=== PATIENT | male | born 1980 | race African-American/Black ===

== ENCOUNTER 2017-11-02 18:21 | Emergency (ER) | payer SELFPAY ==
[~2017-11-02] VITALS: Ht 182.9 cm; Wt 104.3 kg
[2017-11-02 18:38] VITALS: BP 161/94
--- NOTE | 2017-11-02 18:40 | NUR ---
Patient ambulated to bed 2. RN evaluating patient at bedside.
--- NOTE | 2017-11-02 18:48 | NUR ---
REPORT GIVEN TO ZORAIDA RUBIO
--- NOTE | 2017-11-02 18:50 | NUR ---
PATIENT COMPLAINS OF LEFT ANKLE PAIN X 1 MONTH. PATIENT REPORTS SPRAINED ANKLE 1 MONTH AGO, DID NOT FOLLOW UP WITH ANY DOCTORS AND STATES ANKLE HAS NEVER BEEN THE SAME. CAP REFILL LESS THAN 3 SEC. DENIES N/V/D; SKIN IS PINK/WARM/DRY; AAOX4 WITH EVEN AND STEADY GAIT; PATIENT STATES PAIN OF 1/10 AT THIS TIME; VSS; PATIENT POSITIONED FOR COMFORT; HOB ELEVATED; BEDRAILS UP X1; BED DOWN. ER MD MADE AWARE OF PT STATUS.
--- NOTE | 2017-11-02 19:11 | NUR ---
RECIEVED REPORT FROM RAMIRO CONWAY
[2017-11-02 20:12] VITALS: BP 161/94
--- NOTE | 2017-11-02 20:12 | NUR ---
Patient discharged with v/s stable with decreased pain. Written and verbal after care instructions given and explained. Patient verbalized understanding. Ambulatory with steady gait. All questions addressed prior to discharge. Advised to follow up with PMD.
== END 2017-11-02 20:12 | disposition home or self-care (01) ==
LOC: MED 18:21
DX: S93.402A Sprain of unspecified ligament of left ankle, initial encounter (principal); X58.XXXA Exposure to other specified factors, initial encounter; Y93.89 Activity, other specified; Y92.89 Other specified places as the place of occurrence of the external cause; Y99.8 Other external cause status
CPT/HCPCS: 73610; 99284; Q0092

== ENCOUNTER 2019-06-11 02:23 | Emergency (ER) | payer MEDICAID ==
[~2019-06-11] VITALS: Ht 180.3 cm; Wt 108.0 kg
[2019-06-11 02:28] VITALS: BP 162/101
--- NOTE | 2019-06-11 02:40 | NUR ---
PT TAKEN TO BED 4
--- NOTE | 2019-06-11 02:50 | NUR ---
PT ASSESSMENT COMPLETE. PT PLACED IN GOWN. BEDRAIL X1 UP. WILL CONTINUE TO MONITOR.
--- NOTE | 2019-06-11 03:06 | NUR ---
Dr. Eaton examining patient.
--- NOTE | 2019-06-11 03:20 | NUR ---
PT UNABLE TO PROVIDE URINE SPECIMEN AT THIS TIME. DR. RUFF GAVE PERMISSION TO GIVE PT PO FLUIDS
--- NOTE | 2019-06-11 03:45 | NUR ---
Ultrasound at bedside.
[2019-06-11 04:08] LABS: APPEARANCE,URINE CLEAR (CLEAR); BILIRUBIN,URINE NEGATIVE (NEGATIVE); BLOOD, URINE TRACE-I (NEGATIVE); COLOR,URINE YELLOW (YELLOW); LEUKOCYTE ESTERASE ,URINE TRACE (NEGATIVE); NITRITE, URINE NEGATIVE (NEGATIVE); UGLUCOSE NEGATIVE (NEGATIVE)
[2019-06-11 04:28] LABS: RBC,URINE 0-5 /HPF (0-5)
--- NOTE | 2019-06-11 04:45 | NUR ---
PT BP AT 184/87, PT ASYMPTOMATIC. PT STATES "SOMETIMES IT GETS LIKE THAT AFTER I GO OUT. I HAD SOME ALCOHOL AND COCAINE LAST NIGHT." ERMD MADE AWARE.
[2019-06-11] MEDS ORDERED: AZITHROMYCIN 250 MG TAB PO ONE (05:05)
[2019-06-11] MEDS ORDERED: cefTRIAXone 250 MG in LIDOCAINE MPF 1% 0.9 ML IM ONE (05:05)
[2019-06-11] MEDS ORDERED: LIDOCAINE MPF 1% 5 ML ONE (05:09)
[2019-06-11] MEDS ORDERED: cefTRIAXone 250 MG VIAL ONE (05:09)
--- NOTE | 2019-06-11 05:22 | NUR ---
EXPLAINED SIDE EFFECTS OF AZITHROMYCIN AND ROCEPHIN; PT MADE AWARE THAT CESSATION OF ALCOHOL IS NEEDED WHILE ON ANTIBIOTICS. PT REPORTS "THAT'S HARD TO STOP. IT'S MY ENVIRONMENT. I'M AROUND ALOT OF PEOPLE AND WE ALL DRINK TOGETHER." FURTHER EDUCATION PROVIDED OF INTERACTION BETWEEN ALCOHOL AND MEDICATION.
[2019-06-11 05:59] VITALS: BP 155/82
[2019-06-13 06:07] LABS: CHLAMYDIA TRACHOMATIS AMP DNA Negative (Negative)
== END 2019-06-11 05:56 | disposition home or self-care (01) ==
LOC: MED 02:23
DX: N45.1 Epididymitis (principal)
CPT/HCPCS: 36415; 76870; 81001; 87086; 96372; 99284; J0696; J2001; 87491

== ENCOUNTER 2020-01-05 09:24 | Emergency (ER) | payer MEDICAID ==
[~2020-01-05] VITALS: Ht 177.8 cm; Wt 104.3 kg
[2020-01-05 09:26] VITALS: BP 168/91
--- NOTE | 2020-01-05 10:09 | NUR ---
pt knows of his dx of htn but never got sterted on htn denies any symptoms hx--htn rx--none
[2020-01-05] MEDS ORDERED: hydroCHLOROthiazide 25 MG TAB PO ONE (10:15)
[2020-01-05 10:52] VITALS: BP 177/106
--- NOTE | 2020-01-05 10:53 | NUR ---
Patient discharged with v/s stable. Written and verbal after care instructions given and explained. Patient alert, oriented and verbalized understanding of instructions. Ambulatory with steady gait. All questions addressed prior to discharge. ID band removed. Patient advised to follow up with PMD. Rx of HYDROCHLOROTHIAZIDE given. Patient educated on indication of medication including possible reaction and side effects. Opportunity to ask questions provided and answered.
== END 2020-01-05 10:53 | disposition home or self-care (01) ==
LOC: MED 09:24
DX: I10 Essential (primary) hypertension (principal)
CPT/HCPCS: 99283

== ENCOUNTER 2022-09-13 08:57 | Emergency (ER) | payer MEDICAID ==
[~2022-09-13] VITALS: Ht 180.3 cm; Wt 90.7 kg
[2022-09-13 09:26] VITALS: BP 137/80
--- NOTE | 2022-09-13 10:04 | NUR ---
42 years old male presents to er c/o left leg rash with occasional burn itch.
[2022-09-13] MEDS ORDERED: KEN.1O TP (10:19)
[2022-09-13 10:37] VITALS: BP 130/70
--- NOTE | 2022-09-13 10:39 | NUR ---
patient condition stable d/c home with instructions after care reviewed understood left er ambulatory with steady gait.
== END 2022-09-13 10:37 | disposition home or self-care (01) ==
LOC: MED 08:57
DX: L40.9 Psoriasis, unspecified (principal); I10 Essential (primary) hypertension; Z79.899 Other long term (current) drug therapy
CPT/HCPCS: 99281